=== PATIENT | male | born 1970 | race Caucasian/White ===

== ENCOUNTER 2023-12-14 17:16 | Inpatient (IN) | payer OTHER ==
[2023-12-14] MEDS ORDERED: LORazepam 2 MG TABLET ONE (17:52)
[2023-12-14] MEDS: LORazepam 1 MG TABLET PO ONE (17:55)
[2023-12-14] MEDS ORDERED: POLYETHYLENE GLYCOL (HEALTHYLAX) 3350 17 GM PACKET PO PRN (18:15)
[2023-12-14] MEDS ORDERED: IBUPROFEN 600 MG TABLET (FP) PO PRN (18:15)
[2023-12-14] MEDS ORDERED: NICOTINE POLACRILEX 2 MG GUM BUC PRN (18:15)
[2023-12-14] MEDS ORDERED: ACETAMINOPHEN 325 MG TABLET (FP) PO PRN (18:15)
[2023-12-14] MEDS ORDERED: BENZOCAINE/MENTHOL (CHLORASEPTIC ) LOZENGE MM PRN (18:15)
[2023-12-14] MEDS ORDERED: NICOTINE POLACRILEX 2 MG LOZENGE BC PRN (18:15)
[2023-12-14] MEDS ORDERED: BENZONATATE 200 MG CAPSULE PO PRN (18:15)
[2023-12-14] MEDS ORDERED: guaiFENesin 600 MG TABLET.ER (FP) PO PRN (18:15)
[2023-12-14] MEDS ORDERED: LOPERAMIDE HCL 2 MG CAPSULE PO PRN (18:15)
[2023-12-14] MEDS ORDERED: ONDANSETRON *ODT* 4 MG TABLET SL PRN (18:15)
[2023-12-14] MEDS ORDERED: MAGNESIUM HYDROX 2400MG/30ML ORAL SUSPENSION 30 ML CUP PO PRN (18:15)
[2023-12-14 18:36] VITALS: BMI 26.8
[2023-12-14] MEDS: FAMOTIDINE 20 MG TABLET PO SCH (19:43)
[2023-12-14] MEDS: chlordiazePOXIDE HCL 25 MG CAPSULE PO ONE ×2 (19:45→19:50)
[2023-12-14] MEDS: THIAMINE 100 MG TABLET PO SCH (23:26)
[2023-12-14] MEDS: MELATONIN 5 MG TABLETS PO SCH (23:26)
[2023-12-14] MEDS: chlordiazePOXIDE HCL 25 MG CAPSULE PO SCH (23:27)
[2023-12-15] MEDS: MAG HYDROX/AL HYDROX/SIMETH 30 ML UNIT-DOSE CUP PO PRN (08:10)
[2023-12-15] MEDS: PRENATAL VITAMINS W/ FOLIC ACID TABLET (FP) PO SCH (09:30)
[2023-12-15] MEDS: NICOTINE 7 MG/24 HOURS TOPICAL PATCH TD SCH (09:30)
[2023-12-15 11:11] LABS: HEMATOCRIT 44.5 % (35.4-49); MCH 34.8 pg (25.7-33.7); MCHC 35.9 g/dl (32.0-35.9); MEAN CELL VOLUME 96.9 fl (80-96); MEAN PLT VOLUME 8.4 fl (7.5-11.1); PLATELET COUNT 184 10^3/uL (134-434); RBC 4.59 M/mm3 (4.00-5.60); RDW 14.1 % (11.9-15.9); WHITE BLOOD COUNT 6.2 K/mm3 (4.0-10.0)
[2023-12-15] MEDS: BISMUTH SUBSALICYLATE 524 MG/30 ML PO PRN (11:45)
[2023-12-15 11:57] LABS: CHLORIDE 101 mmol/L (98-107); POTASSIUM 4.3 mmol/L (3.5-5.1); SODIUM 135 mmol/L (136-145)
[2023-12-15 11:59] LABS: ALBUMIN 3.4 g/dl (3.4-5.0); ANION GAP 10 mmol/L (4-13); CALCIUM 8.4 mg/dL (8.5-10.1); CO2 24 mmol/L (21-32); GLUCOSE,RANDOM 148 mg/dL (74-106)
[2023-12-15 12:03] LABS: CREATININE 1.2 mg/dL (0.55-1.3)
[2023-12-15 12:04] LABS: BILIRUBIN,TOTAL 2.6 mg/dL (0.2-1)
[2023-12-15 12:05] LABS: ALK PHOS 380 U/L (45-117)
[2023-12-15] MEDS: METHOCARBAMOL 500 MG TABLET PO PRN (13:36)
[2023-12-15 13:53] LABS: BLOOD UREA NITROGEN 10.4 mg/dL (7-18); SGOT/AST 806 U/L (15-37); TOT PROT 6.9 g/dl (6.4-8.2)
[2023-12-15] MEDS: DICYCLOMINE HCL 10 MG CAPSULE PO PRN (18:32)
[2023-12-15] MEDS: chlordiazePOXIDE HCL 25 MG CAPSULE PO PRN (20:20)
[2023-12-16] MEDS: chlordiazePOXIDE HCL 25 MG CAPSULE PO SCH (05:49)
[2023-12-16] MEDS: hydrOXYzine PAMOATE 25 MG CAPSULE (FP) PO PRN (10:44)
[2023-12-17] MEDS ORDERED: chlordiazePOXIDE HCL 10 MG CAPSULE PO PRN
[2023-12-17] MEDS: chlordiazePOXIDE HCL 10 MG CAPSULE PO SCH (05:53)
[2023-12-17] MEDS: LORazepam 1 MG TABLET PO PRN (14:58)
[2023-12-17] MEDS: LORazepam 1 MG TABLET PO SCH (17:50)
[2023-12-18] MEDS ORDERED: chlordiazePOXIDE HCL 10 MG CAPSULE PO SCH (05:00)
[2023-12-18] MEDS: LORazepam 0.5 MG TABLET PO SCH (06:09)
[2023-12-18] MEDS: NALTREXONE HCL 50 MG TABLET PO SCH (11:54)
[2023-12-18 13:03] VITALS: RESP 16
[2023-12-18] MEDS: IBUPROFEN 400 MG TABLET (FP) PO PRN (17:48)
[2023-12-19] MEDS ORDERED: chlordiazePOXIDE HCL 10 MG CAPSULE PO ONE (05:00)
[2023-12-19] MEDS: LORazepam 0.5 MG TABLET PO ONE (05:33)
[2023-12-19 06:37] VITALS: BP 103/77; PULSE 77; TEMP 97.8
== END 2023-12-19 09:30 | disposition home or self-care (01) | DRG 775 ==
LOC: YASAS 17:16 → Y6N 19:16
PROVIDERS: ADMIT Allergy & Immunology; ATTEND Surgery
PROC: HZ2ZZZZ Detoxification Services for Substance Abuse Treatment (ICD-10-PCS; principal; 2023-12-14)
DX: F10.29 Alcohol dependence with unspecified alcohol-induced disorder (principal); F10.230 Alcohol dependence with withdrawal, uncomplicated; F17.210 Nicotine dependence, cigarettes, uncomplicated; K21.9 Gastro-esophageal reflux disease without esophagitis; R73.9 Hyperglycemia, unspecified; R74.01 Elevation of levels of liver transaminase levels
CPT/HCPCS: 36415; 80053; 80305; 82247; 83036; 84450; 85027; 86780; 86803; 93005; 93010